=== PATIENT | male | born 1990 | race Hispanic/Latino ===

== ENCOUNTER 2019-04-01 17:59 | Emergency (ER) | payer OTHER ==
[2019-04-01] MEDS ORDERED: DERMABOND SKIN ADHESIVE TOP ONE (18:20)
--- NOTE | 2019-04-01 18:36 | ER ---
Nurse's Notes [facility] Name: Ramya Lim Age: 28 yrs Sex: Male : 1990 Arrival Date: 04/01/2019 Time: 18:01 Bed 12 Private MD: Diagnosis: Laceration without foreign body of left index finger without damage to nail Presentation: 04/01 18:30 Presenting complaint: Patient states: accidentally cut his left index finger with knife iw while cutting a belt off an inmate's neck, was also exposed to inmate's blood. Transition of care: patient was not received from another setting of care. Onset of symptoms was April 01, 2019. Risk Assessment: Do you want to hurt yourself or someone else? Patient reports no desire to harm self or others. Initial Sepsis Screen: Does the patient meet any 2 criteria? No. Patient's initial sepsis screen is negative. Does the patient have a suspected source of infection? No. Patient's initial sepsis screen is negative. Care prior to arrival: None. 18:30 Method Of Arrival: Ambulatory iw 18:32 Acuity: JANNY 4 iw Historical: - Allergies: 18:32 No Known Allergies; iw - Home Meds: 18:32 None [Active]; iw - PMHx: 18:32 None; iw - Immunization history:: Last tetanus immunization: unknown. - Social history:: Smoking status: . - Ebola Screening: : Patient denies travel to an Ebola-affected area in the 21 days before illness onset. Screenin:20 Abuse screen: Denies threats or abuse. Nutritional screening: No deficits noted. tw2 Tuberculosis screening: No symptoms or risk factors identified. Fall Risk None identified. Assessment: 18:45 General: Appears in no apparent distress. Behavior is calm. Pain: Denies pain. Neuro: iw Level of Consciousness is awake, alert, obeys commands, Oriented to person, place, time, situation, Moves all extremities. Derm: Skin is intact, is healthy with good turgor. Injury Description: Laceration sustained to dorsal aspect of distal phalanx of left index finger and left index fingernail is 0.5 to 2.5 cm long. Vital Signs: 18:34 BP 128 / 74; Pulse 84; Resp 16 S; Temp 98.2; Pulse Ox 100% on R/A; iw ED Course: 18:01 Patient arrived in ED. snw 18:07 Geo Green NP is PHCP. pm1 18:07 Tadeo Oneil MD is Attending Physician. pm1 18:10 Akila Maldonado, RN is Primary Nurse. iw 18:20 Arm band placed on. tw2 18:20 Bed in low position. tw2 18:32 Triage completed. iw 19:15 No provider procedures requiring assistance completed. Patient did not have IV access iw during this emergency room visit. Administered Medications: 19:05 Drug: Tetanus-Diphtheria Toxoid Adult 0.5 ml {Contact Center Manager: [email or web address]. Exp: iw 02/07/2020. Lot #: [id number]. } Route: IM; Site: right deltoid; 19:10 Follow up: Response: No adverse reaction iw Outcome: 18:35 Discharge ordered by . pm1 19:16 Discharged to home ambulatory. iw 19:16 Condition: good 19:16 Discharge instructions given to patient, Instructed on discharge instructions, follow up and referral plans. wound care, Demonstrated understanding of instructions, follow-up care, wound care. 19:19 Patient left the ED. iw Signatures: Anne Piper, GUEST SERVICES REPRESENTATIVE-C GUEST SERVICES REPRESENTATIVE-Csnw Akila Maldonado RN RN iw Geo Green NP ANIMAL HEALTH TECHNICIAN pm1 Keri Ramirez RN RN tw2
--- NOTE | 2019-04-01 18:36 | EDPHYS ---
Physician Documentation [facility] Name: Ramya Lim Age: 28 yrs Sex: Male : 1990 Arrival Date: 04/01/2019 Time: 18:01 Bed 12 Private MD: ED Physician Tadeo Oneil HPI: 04/01 18:35 This 28 yrs old Male presents to ER via Ambulatory with complaints of Finger pm1 Injury. 18:35 Trauma demographics: Location of Injury: The injury occurred at work. Mechanism of pm1 injury: accidentally cut finger while trying to cut rope off a person's neck. Person was trying to hang himself and choke himself. Associated injuries: The patient sustained dorsal aspect of distal phalanx of left index finger, laceration, 1.5 cm(s). Onset: The symptoms/episode began/occurred just prior to arrival. The patient has not experienced similar symptoms in the past. The patient has not recently seen a physician. 18:35 Patient believes that there might have been possible blood exposure to his laceration. pm1 Historical: - Allergies: 18:32 No Known Allergies; iw - Home Meds: 18:32 None [Active]; iw - PMHx: 18:32 None; iw - Immunization history:: Last tetanus immunization: unknown. - Social history:: Smoking status: . - Ebola Screening: : Patient denies travel to an Ebola-affected area in the 21 days before illness onset. ROS: 18:35 Constitutional: Negative for fever, chills, and weight loss. pm1 18:35 MS/extremity: Positive for laceration, of the dorsal aspect of distal phalanx of left index finger, Negative for decreased range of motion, deformity. 18:35 Skin: Positive for laceration(s), of the dorsal aspect of distal phalanx of left index finger. 18:35 Neuro: Negative for numbness, tingling, weakness. 18:35 All other systems are negative. Exam: 18:35 Constitutional: This is a well developed, well nourished patient who is awake, alert, pm1 and in no acute distress. Head/Face: Normocephalic, atraumatic. Chest/axilla: Normal chest wall appearance and motion. Nontender with no deformity. No lesions are appreciated. Cardiovascular: Regular rate and rhythm with a normal S1 and S2. No gallops, murmurs, or rubs. Normal PMI, no JVD. No pulse deficits. Respiratory: Lungs have equal breath sounds bilaterally, clear to auscultation and percussion. No rales, rhonchi or wheezes noted. No increased work of breathing, no retractions or nasal flaring. Back: No spinal tenderness. No costovertebral tenderness. Full range of motion. 18:35 MS/ Extremity: Pulses equal, no cyanosis. Neurovascular intact. Full, normal range of motion. 18:35 Skin: Appearance: normal except for affected area, injury, laceration(s), the wound is approximately 1.5 cm(s), with a depth of 0.2 cm(s), of the dorsal aspect of distal phalanx of left index finger. 18:35 Neuro: Orientation: is normal, Motor: is normal, moves all fours. Vital Signs: 18:34 BP 128 / 74; Pulse 84; Resp 16 S; Temp 98.2; Pulse Ox 100% on R/A; iw MDM: 18:34 Counseling: I had a detailed discussion with the patient and/or guardian regarding: the pm1 historical points, exam findings, and any diagnostic results supporting the discharge/admit diagnosis, the need for outpatient follow up, to return to the emergency department if symptoms worsen or persist or if there are any questions or concerns that arise at home. 18:35 Patient medically screened. pm1 18:35 Data reviewed: vital signs. pm1 19:14 Data interpreted: Pulse oximetry: on room air is 100 %. Interpretation: normal. ED pm1 course: requested that the person who the patient saved get HIV and hepatitis panel. 04/01 19:11 Order name: HIV AG/AB SCREEN EDMS 04/01 19:14 Order name: Hepatitis Panel,Acute EDMS Administered Medications: 19:05 Drug: Tetanus-Diphtheria Toxoid Adult 0.5 ml {Safety Investigator/Cause Analyst: [employer]. Exp: iw 02/07/2020. Lot #: [id number]. } Route: IM; Site: right deltoid; 19:10 Follow up: Response: No adverse reaction iw Disposition: 04/02 08:58 Co-signature as Attending Physician, Tadeo Oneil MD I agree with the assessment and kdr plan of care. Disposition: 04/01/19 18:35 Discharged to Home. Impression: Laceration without foreign body of left index finger without damage to nail. - Condition is Stable. - Discharge Instructions: Laceration Care, Adult, [id number]. - Work release form, Medication Reconciliation Form, Thank You Letter, Antibiotic Education, Prescription Opioid Use form. - Follow up: Emergency Department; When: As needed; Reason: Worsening of condition. Follow up: Private Physician; When: 2 - 3 days; Reason: Recheck today's complaints, Continuance of care, Re-evaluation by your physician. - Problem is new. - Symptoms have improved. Signatures: Dispatcher [employer] EDTX Tadeo Oneil MD MD kdr Akila Maldonado RN RN iw Geo Green NP COMMUNICATIONS CLERK pm1 Keri Ramirez RN RN tw2 Corrections: (The following items were deleted from the chart) 04/01 18:34 18:17 Dermabond ordered. pm1 pm1 19:11 18:25 HIV (1 ordered. [facility] 19:14 18:18 HEPATITIS EXPOSURE PANEL+R.LAB.BRZ ordered. [facility] EDTX 19:19 18:35 04/01/2019 18:35 Discharged to Home. Impression: Laceration without foreign body iw of left index finger without damage to nail. Condition is Stable. Forms are Medication Reconciliation Form, Thank You Letter, Antibiotic Education, Prescription Opioid Use. Follow up: Emergency Department; When: As needed; Reason: Worsening of condition. Follow up: Private Physician; When: 2 - 3 days; Reason: Recheck today's complaints, Continuance of care, Re-evaluation by your physician. Problem is new. Symptoms have improved. pm1
[2019-04-01] MEDS ORDERED: TETANUS & DIPHTHERIA TOX,ADULT 0.5 ML VIAL ONE (19:06)
[2019-04-01 20:28] VITALS: BP 128/74; TEMP 98.2; O2SAT 100
[2019-04-05 16:27] LABS: HIV AG/AB 4TH GEN Non-reactive (Non-reactive)
[2019-04-07 06:12] LABS: HBsAG Nonreactive (Nonreactive)
== END 2019-04-01 19:19 | disposition home or self-care (01) ==
LOC: ER 17:59
DX: S61.211A Laceration without foreign body of left index finger without damage to nail, initial encounter (principal); W26.0XXA Contact with knife, initial encounter; Y93.89 Activity, other specified; Y92.89 Other specified places as the place of occurrence of the external cause; Z23 Encounter for immunization
CPT/HCPCS: 80074; 87389; 90471; 90714; 99283

== ENCOUNTER 2019-10-15 05:14 | Emergency (ER) | payer OTHER ==
--- NOTE | 2019-10-15 05:29 | ER ---
Nurse's Notes [facility] Name: Ramya Lim Age: 29 yrs Sex: Male : 1990 Arrival Date: 10/15/2019 Time: 05:15 Bed 15 Private MD: Diagnosis: Bitten by dog;Puncture wound without foreign body of right thumb without damage to nail Presentation: 10/14 05:18 Chief complaint: Patient states: Reports he was bit by a dog about 20 minutes ago while ea on duty. Pt reports dog was a husky and had a harness. Reports puncture wound to right thumb. Coronavirus screen: Proceed with normal triage. Ebola Screen: No symptoms or risks identified at this time. Initial Sepsis Screen: Does the patient meet any 2 criteria? No. Patient's initial sepsis screen is negative. Does the patient have a suspected source of infection? No. Patient's initial sepsis screen is negative. Risk Assessment: Do you want to hurt yourself or someone else? Patient reports no desire to harm self or others. Onset of symptoms was October 15, 2019. 05:18 Method Of Arrival: Ambulatory ea 05:18 Acuity: JANNY 4 ea Triage Assessment: 05:22 Bite description: bite sustained to dorsal aspect of proximal phalanx of right thumb by ea a dog, animal information: vaccination(s) is not applicable. General: Appears in no apparent distress. Behavior is calm, cooperative, appropriate for age. Pain: Complains of pain in right hand. Historical: - Allergies: 05:23 No Known Allergies; ea - Home Meds: 05:23 None [Active]; ea - PMHx: 05:23 None; ea - PSHx: 05:23 None; ea - Immunization history:: Adult Immunizations up to date. - Social history:: Smoking status: Patient denies any tobacco usage or history of. - Family history:: not pertinent. - Hospitalizations: : No recent hospitalization is reported. Screenin:21 Abuse screen: Denies threats or abuse. Nutritional screening: No deficits noted. ea Tuberculosis screening: No symptoms or risk factors identified. Fall Risk None identified. Assessment: 05:22 General: Appears in no apparent distress. Behavior is calm, cooperative, appropriate ea for age. Pain: Complains of pain in dorsal aspect of proximal phalanx of right thumb. Neuro: Level of Consciousness is awake, alert, obeys commands, Oriented to person, place, time. Respiratory: Airway is patent Respiratory effort is even, unlabored, Respiratory pattern is regular, symmetrical. Derm: Skin puncture noted to dorsal aspect of proximal phalanx of right thumb Skin is normal. Musculoskeletal: Circulation, motion, and sensation intact. Vital Signs: 05:18 BP 133 / 83; Pulse 84; Resp 16; Temp 97.3; Pulse Ox 99% on R/A; Weight 92.99 kg; Height ea 6 ft. (182.88 cm); 05:18 Body Mass Index 27.80 (92.99 kg, 182.88 cm) ea ED Course: 05:15 Patient arrived in ED. es 05:16 Alvin Tenorio MD is Attending Physician. rn 05:18 Julianna Bennett RN is Primary Nurse. ea 05:21 Triage completed. ea 05:21 Patient has correct armband on for positive identification. Bed in low position. Call ea light in reach. 05:22 Arm band placed on right wrist. Patient placed in an exam room, on a stretcher, on ea pulse oximetry. 05:55 No provider procedures requiring assistance completed. Patient did not have IV access ea during this emergency room visit. Administered Medications: 05:54 Drug: Motrin 800 mg Route: PO; ea 05:54 Follow up: Response: No adverse reaction ea Outcome: 05:29 Discharge ordered by . rn 05:55 Discharged to home ambulatory. ea 05:55 Condition: stable 05:55 Discharge instructions given to patient, Instructed on discharge instructions, follow up and referral plans. medication usage, Demonstrated understanding of instructions, follow-up care, medications, Prescriptions given X 1. 05:57 Patient left the ED. ea Signatures: Tammy Casarez Roman, MD MD rn Antunez, Elena, RN RN ea
--- NOTE | 2019-10-15 05:29 | EDPHYS ---
Physician Documentation [facility] Name: Ramya Lim Age: 29 yrs Sex: Male : 1990 Arrival Date: 10/15/2019 Time: 05:15 Bed 15 Private MD: ED Physician Alvin Tenorio HPI: 10/14 05:20 This 29 yrs old Male presents to ER via Unassigned with complaints of Dog Bite.rn 05:20 The patient was bitten on the right thumb, by a dog, reached for dog harness. Onset: rn The symptoms/episode began/occurred just prior to arrival. Animal information: Patient/Caregiver unable to provide information related to the animal. Secondary to the bite the patient reports multiple puncture wounds. Severity of symptoms: At their worst the symptoms were mild, in the emergency department the symptoms are unchanged. The patient has not experienced similar symptoms in the past. Reports reaching for dog behind HEB, had a harness, dog bit him on thumb, otherwise dog seemed nice and acting normal. Does not feel broken. Mild throbbing. dominant hand.. Historical: - Allergies: 05:23 No Known Allergies; ea - Home Meds: 05:23 None [Active]; ea - PMHx: 05:23 None; ea - PSHx: 05:23 None; ea - Immunization history:: Adult Immunizations up to date. - Social history:: Smoking status: Patient denies any tobacco usage or history of. - Family history:: not pertinent. - Hospitalizations: : No recent hospitalization is reported. ROS: 05:20 MS/Extremity: + dog bite to right thumb rn Exam: 05:20 Constitutional: This is a well developed, well nourished patient who is awake, alert, rn and in no acute distress. MS/ Extremity: Pulses equal, no cyanosis. Neurovascular intact. Full, normal range of motion. + 3 puncture wounds circumferential right mid thumb, no gross deformity. No foreign bodies identified. Vital Signs: 05:18 BP 133 / 83; Pulse 84; Resp 16; Temp 97.3; Pulse Ox 99% on R/A; Weight 92.99 kg; Height ea 6 ft. (182.88 cm); 05:18 Body Mass Index 27.80 (92.99 kg, 182.88 cm) ea MDM: 05:16 Patient medically screened. rn 05:20 Differential diagnosis: dog bite, puncture wounds. Data reviewed: vital signs, nurses rn notes, and as a result, I will discharge patient. Counseling: I had a detailed discussion with the patient and/or guardian regarding: the historical points, exam findings, and any diagnostic results supporting the discharge/admit diagnosis, the need for outpatient follow up, to return to the emergency department if symptoms worsen or persist or if there are any questions or concerns that arise at home. Special discussion: I discussed with the patient/guardian in detail that at this point there is no indication for admission to the hospital. It is understood, however, that if the symptoms persist or worsen the patient needs to return immediately for re-evaluation. ED course: No foreign bodies identified on exam, FROM, police report filed and animal captured. Will dc home with abx and return precautions.. Administered Medications: 05:54 Drug: Motrin 800 mg Route: PO; ea 05:54 Follow up: Response: No adverse reaction ea Disposition: 10/15/19 05:29 Discharged to Home. Impression: Bitten by dog, Puncture wound without foreign body of right thumb without damage to nail. - Condition is Stable. - Discharge Instructions: Animal Bite. - Prescriptions for Augmentin 875- 125 mg Oral Tablet - take 1 tablet by ORAL route every 12 hours for 10 days; 20 tablet. - Medication Reconciliation Form, Thank You Letter, Antibiotic Education, Prescription Opioid Use, Work release form form. - Follow up: Private Physician; When: As needed; Reason: Recheck today's complaints, Re-evaluation by your physician. - Problem is new. - Symptoms have improved. Signatures: Mohan Tolentino RN RN sg Nieto, Roman, MD MD rn Antunez, Elena, RN RN ea Corrections: (The following items were deleted from the chart) 05:57 05:29 10/15/2019 05:29 Discharged to Home. Impression: Bitten by dog; Puncture wound ea without foreign body of right thumb without damage to nail. Condition is Stable. Forms are Medication Reconciliation Form, Thank You Letter, Antibiotic Education, Prescription Opioid Use. Follow up: Private Physician; When: As needed; Reason: Recheck today's complaints, Re-evaluation by your physician. Problem is new. Symptoms have improved. rn
[2019-10-15] MEDS ORDERED: LIDOCAINE VISCOUS 2% SOLN 15 ML UDC ONE (05:37)
[2019-10-15] MEDS ORDERED: IBUPROFEN 400 MG TAB ONE (05:50)
[2019-10-15 06:04] VITALS: BP 133/83; TEMP 97.3; O2SAT 99
== END 2019-10-15 05:57 | disposition home or self-care (01) ==
LOC: ER 05:14
DX: S61.031A Puncture wound without foreign body of right thumb without damage to nail, initial encounter (principal); W54.0XXA Bitten by dog, initial encounter; Y93.89 Activity, other specified; Y92.9 Unspecified place or not applicable
CPT/HCPCS: 99283